=== PATIENT | female | born 1940 | race Caucasian/White ===

== ENCOUNTER 2021-06-28 16:39 | Emergency (ER) | payer MEDICARE ==
[~2021-06-28] VITALS: Ht 162.6 cm; Wt 57.2 kg
[2021-06-28 16:41] VITALS: BP_SYST 177
[2021-06-28] MEDS ORDERED: NACL 0.9% 1,000 ML IV ONE (17:00)
[2021-06-28] MEDS ORDERED: cloNIDine HCL 0.1 MG TABLET PO ONE (17:00)
[2021-06-28] MEDS ORDERED: MORPHINE 4 MG INJ. 4 MG/ML VIAL IVP ONE (17:00)
[2021-06-28] MEDS ORDERED: ONDANSETRON HCL 4 MG/2 ML VIAL IVP ONE (17:00)
[2021-06-28] MEDS ORDERED: ENALAPRILAT DIHYDRATE 1.25 MG/ML VIAL IVP ONE (17:00)
--- NOTE | 2021-06-28 17:00 | NUR ---
DR EAGLE IN TO ASSESS
--- NOTE | 2021-06-28 17:00 | NUR ---
Patient to ER bed 6 to gown for evaluation. Side rails up. Report given to Philip NICHOLE.
--- NOTE | 2021-06-28 17:31 | NUR ---
CALM, ALERT, RESP UNLABORED, SKIN WARM AND DRY. COMMUNICATES CLEARLY IN FULL COMPLETE SENTENCES. NO DISTRESS
[2021-06-28 17:39] LABS: BASOPHILS # (AUTO) 0.1 K/uL (0.0-0.2); BASOPHILS % (AUTO) 1.3 % (0.0-2.0); EOSINOPHILS # (AUTO) 0.1 K/uL (0.0-0.4); EOSINOPHILS % (AUTO) 2.1 % (0.0-4.0); HEMATOCRIT 36.1 % (36-48); HEMOGLOBIN 11.9 g/dL (12.0-16.0); LYMPHOCYTES # (AUTO) 1.3 K/uL (1.0-5.5); LYMPHOCYTES % (AUTO) 19.5 % (20.5-51.5); MEAN CORPUSCULAR HEMOGLOBIN 27 pg (27-31); MEAN CORPUSCULAR HGB CONC 33 % (32-36); MEAN CORPUSCULAR VOLUME 83 fL (79.0-98.0); MONOCYTES # (AUTO) 0.3 K/uL (0.0-1.0); MONOCYTES % (AUTO) 5.1 % (1.7-9.3); NEUTROPHILS # (AUTO) 4.8 K/uL (1.8-7.7); PLATELET COUNT (AUTO) 316 K/uL (130-430); RED BLOOD CELL COUNT(AUTO) 4.38 MIL/uL (4.2-6.2); RED CELL DISTRIBUTION WIDTH 17.3 % (9.0-15.0); WHITE BLOOD COUNT (AUTO) 6.7 K/uL (4.8-10.8)
[2021-06-28 17:45] LABS: ANION GAP 5 (5-15); CALCIUM 8.6 mg/dL (8.4-11.0); CHLORIDE 101 mmol/L (98-107); CREATININE 1.26 mg/dL (0.55-1.30); GLUCOSE 108 mg/dL (70-99); POTASSIUM 3.9 mmol/L (3.5-5.1); SODIUM SERUM 136 mmol/L (136-145); UREA NITROGEN, BLOOD 13 mg/dL (8-21)
[2021-06-28 17:51] LABS: ALANINE AMINOTRANSFERASE 14 U/L (12-78); ALBUMIN 2.9 g/dL (3.4-4.8); ASPARTATE AMINOTRANSFERASE 24 U/L (10-37); TOTAL BILIRUBIN 0.9 mg/dL (0.0-1.0)
--- NOTE | 2021-06-28 18:45 | NUR ---
UP TO [facility] STEADY, UA SENT ,PT CALM, ALERT, NO DISTRESS
--- NOTE | 2021-06-28 19:05 | NUR ---
Received endorsement from day shift, AAOX4, breathing spontaneously at room air, not in distress noted. With IV cannula g20 at left forearm on saline lock, patent noted. Vital sign stable, denies any pain
[2021-06-28 19:13] LABS: BILIRUBIN,URINE NEGATIVE (NEGATIVE); CLARITY/URINE CLEAR (CLEAR); COLOR,URINE YELLOW (YELLOW); GLUCOSE,URINE NEGATIVE (NEGATIVE); KETONES,URINE 1+ (NEGATIVE); LEUKOCYTE ESTERASE ,URINE NEGATIVE (NEGATIVE); NITRITE, URINE NEGATIVE (NEGATIVE); PROTEIN URINE TRACE (NEGATIVE); UROBILINOGEN,URINE 0.2 (0.2-1.0)
[2021-06-28 19:14] LABS: BLOOD, URINE TRACE (NEGATIVE)
[2021-06-28 19:16] LABS: BACTERIA,URINE FEW /HPF (None Seen); WBC,URINE 0-3 /HPF (0-3)
--- NOTE | 2021-06-28 20:40 | NUR ---
Patient transported to radiology via gurney in stable condition for CT Abdoman, accompanied by automotive brake technician.
--- NOTE | 2021-06-28 21:05 | NUR ---
Returned from radiology, back to room and kept comfortable
--- NOTE | 2021-06-28 22:45 | NUR ---
For transfer to [place] due to insurance request, shelter monitor still arranging for transfer
--- NOTE | 2021-06-29 00:40 | NUR ---
Complained of Abdominal pain 06/17, facial grimace noted, Dr. Saeed made aware
[2021-06-29] MEDS ORDERED: MORPHINE 4 MG INJ. 4 MG/ML VIAL IVP ONE (00:45)
--- NOTE | 2021-06-29 00:51 | NUR ---
Medication given as ordered, health teaching provided and verbalized understanding
[2021-06-29 02:29] VITALS: BP_SYST 143
--- NOTE | 2021-06-29 02:29 | NUR ---
Patient given written and verbal discharge instructions and verbalizes understanding. ER MD discussed with patient the results and treatment provided. Patient in stable condition. ID arm band removed. IV catheter removed intact and dressing applied, no active bleeding. NO Rx of given. Patient educated on pain management and to follow up with PMD. Pain Scale 0/10. Opportunity for questions provided and answered.
== END 2021-06-29 02:29 | disposition home or self-care (01) ==
LOC: SED 16:39
DX: A08.4 Viral intestinal infection, unspecified (principal); E86.0 Dehydration; I10 Essential (primary) hypertension; I48.91 Unspecified atrial fibrillation; Z88.8 Allergy status to other drugs, medicaments and biological substances; Z20.822 Contact with and (suspected) exposure to COVID-19
CPT/HCPCS: 36415; 71045; 74176; 76376; 80053; 81000; 83605; 85025; 87040; 87426; 93005; 96361; 96374; 96375; 96376; 99285; J2270 ×2; J2405; J7030

== ENCOUNTER 2022-12-31 23:47 | Inpatient (IN) | payer OTHER, MEDICAID ==
[~2022-12-31] VITALS: Ht 162.6 cm; Wt 64.2 kg
[2022-12-31 23:47] VITALS: BP_SYST 179
[~2022-12-31 23:47] MED LIST: ALBMDI INH; ALBU2.5V7 INH; ALEN70TA84 PO; ATEN-41 PO; DICL100G59 TP; DIGO125T PO; DIVA500T PO; HYDR25TA4 PO; LACT10SO6 PO; LIDOINT TP; LISI2.5T48 PO; MORP15TA60 PO; NITSL SL; ONDA-8 TL; OXYB15TA19 PO; POTA-178 PO; SYN50 PO
[2023-01-01] MEDS ORDERED: methylPREDNISolone SOD SUCC/PF 62.5 MG/ML VIAL IVP ONE
[2023-01-01] MEDS ORDERED: IPRATROPIUM/ALBUTEROL SULFATE 3 ML AMPUL.NEB (DUONEB) INH ONE
[2023-01-01 00:32] LABS: BASOPHILS # (AUTO) 0.1 K/uL (0.0-0.2); BASOPHILS % (AUTO) 1.3 % (0.0-2.0); EOSINOPHILS # (AUTO) 0.6 K/uL (0.0-0.4); MEAN CORPUSCULAR HEMOGLOBIN 26 pg (27-31); MONOCYTES # (AUTO) 1.2 K/uL (0.0-1.0); NEUTROPHILS # (AUTO) 4.5 K/uL (1.8-7.7); WHITE BLOOD COUNT (AUTO) 8.6 K/uL (4.8-10.8)
[2023-01-01 00:36] LABS: EOSINOPHILS % (AUTO) 6.6 % (0.0-4.0); HEMATOCRIT 34.5 % (36-48); HEMOGLOBIN 11.2 g/dL (12.0-16.0); LYMPHOCYTES # (AUTO) 2.2 K/uL (1.0-5.5); LYMPHOCYTES % (AUTO) 25.9 % (20.5-51.5); MEAN CORPUSCULAR HGB CONC 33 % (32-36); MEAN CORPUSCULAR VOLUME 80 fL (79.0-98.0); MONOCYTES % (AUTO) 14.1 % (1.7-9.3); NEUTROPHILS % (AUTO) 52.1 % (40.0-70.0); PLATELET COUNT (AUTO) 291 K/uL (130-430); RED BLOOD CELL COUNT(AUTO) 4.29 MIL/uL (4.2-6.2); RED CELL DISTRIBUTION WIDTH 16.7 % (9.0-15.0)
[2023-01-01] MEDS ORDERED: FUROSEMIDE 40 MG/4 ML VIAL IVP ONE (01:00)
[2023-01-01 01:19] LABS: ANION GAP 7 (5-15); CALCIUM 8.9 mg/dL (8.4-11.0); CHLORIDE 104 mmol/L (98-107); CREATININE 1.48 mg/dL (0.55-1.30); GLUCOSE 96 mg/dL (70-99); UREA NITROGEN, BLOOD 24 mg/dL (8-21)
[2023-01-01 01:26] LABS: ALANINE AMINOTRANSFERASE 14 U/L (12-78); ALBUMIN 3.1 g/dL (3.4-4.8); ASPARTATE AMINOTRANSFERASE 19 U/L (10-37); TOTAL BILIRUBIN 0.6 mg/dL (0.0-1.0)
[2023-01-01 06:50] VITALS: BP_SYST 137
[2023-01-01] MEDS ORDERED: DIVA-50 PO (07:14)
[2023-01-01] MEDS ORDERED: NITROGLYCERIN 0.4 MG TAB.SUBL SL PRN (07:15)
[2023-01-01] MEDS ORDERED: ONDANSETRON 4 MG ODT TAB TL PRN (07:15)
[2023-01-01] MEDS ORDERED: ALBUTEROL SULFATE 0.083% 2.5 MG/3 ML VIAL.NEB INH PRN (07:15)
[2023-01-01] MEDS ORDERED: MAGNESIUM SULFATE 50 ML IV PRN (08:00)
[2023-01-01] MEDS ORDERED: DOCUSATE SODIUM 100 MG CAPSULE PO PRN (08:00)
[2023-01-01] MEDS ORDERED: MUPIROCIN 2% TOPICAL OINTMENT 22 GM NS PRN (08:00)
[2023-01-01] MEDS ORDERED: ALBUTEROL MDI INHALATION 8 GM INH INH PRN (08:00)
[2023-01-01] MEDS ORDERED: POTASSIUM CHLORIDE 20 MEQ TAB.PRT.SR PO PRN (08:00)
[2023-01-01] MEDS ORDERED: ZOLPIDEM TARTRATE 5 MG TABLET PO PRN (08:00)
[2023-01-01] MEDS: LEVOTHYROXINE SODIUM 0.05 MG TABLET PO SCH (08:10)
[2023-01-01 08:47] VITALS: BP_SYST 143
[2023-01-01] MEDS ORDERED: OXYBUTYNIN CHLORIDE 15 MG PO SCH (09:00)
[2023-01-01] MEDS ORDERED: DIVALPROEX SODIUM 500 MG TABLET( DEPAKOTE) PO SCH (09:00)
[2023-01-01] MEDS: DIVALPROEX SODIUM 500 MG TABLET( DEPAKOTE) PO SCH ×2 (09:58→20:14)
[2023-01-01] MEDS: DIGOXIN 0.125 MG TABLET PO SCH (09:59)
[2023-01-01] MEDS: lisinopriL 5 MG TABLET PO SCH (10:00)
[2023-01-01] MEDS: ATENOLOL 25 MG TABLET(TENORMIN) PO SCH (10:01)
[2023-01-01] MEDS: HEPARIN SODIUM,PORCINE 5,000 UNITS/ML VIAL SUBCUT SCH ×2 (10:02→21:00)
[2023-01-01 10:42] VITALS: BP_SYST 143
[2023-01-01 12:00] VITALS: BP_SYST 138
[2023-01-01 16:00] VITALS: BP_SYST 133
[2023-01-01 20:00] VITALS: BP_SYST 131
[2023-01-01] MEDS: oxyBUTYnin chloride 5 MG TABLET PO SCH (20:14)
[2023-01-02] VITALS: BP_SYST 133
[2023-01-02] MEDS: IPRATROPIUM/ALBUTEROL SULFATE 3 ML AMPUL.NEB (DUONEB) INH PRN ×2 (03:19→13:46)
[2023-01-02 04:00] VITALS: BP_SYST 130
[2023-01-02] MEDS: LEVOTHYROXINE SODIUM 0.05 MG TABLET PO SCH (06:27)
[2023-01-02 07:21] LABS: BASOPHILS % (AUTO) 0.3 % (0.0-2.0); EOSINOPHILS % (AUTO) 0.1 % (0.0-4.0); HEMATOCRIT 31.1 % (36-48); HEMOGLOBIN 10.3 g/dL (12.0-16.0); LYMPHOCYTES # (AUTO) 1.7 K/uL (1.0-5.5); LYMPHOCYTES % (AUTO) 21.7 % (20.5-51.5); MEAN CORPUSCULAR HEMOGLOBIN 27 pg (27-31); MEAN CORPUSCULAR HGB CONC 33 % (32-36); MEAN CORPUSCULAR VOLUME 80 fL (79.0-98.0); MONOCYTES # (AUTO) 0.9 K/uL (0.0-1.0); MONOCYTES % (AUTO) 12.1 % (1.7-9.3); NEUTROPHILS # (AUTO) 5.2 K/uL (1.8-7.7); NEUTROPHILS % (AUTO) 65.8 % (40.0-70.0); PLATELET COUNT (AUTO) 272 K/uL (130-430); RED BLOOD CELL COUNT(AUTO) 3.87 MIL/uL (4.2-6.2); RED CELL DISTRIBUTION WIDTH 16.7 % (9.0-15.0); WHITE BLOOD COUNT (AUTO) 7.8 K/uL (4.8-10.8)
[2023-01-02 07:37] LABS: ANION GAP 6 (5-15); CALCIUM 8.2 mg/dL (8.4-11.0); CHLORIDE 103 mmol/L (98-107); CREATININE 1.44 mg/dL (0.55-1.30); GLUCOSE 98 mg/dL (70-99); UREA NITROGEN, BLOOD 34 mg/dL (8-21)
[2023-01-02 07:50] LABS: ALANINE AMINOTRANSFERASE 11 U/L (12-78); ALBUMIN 2.7 g/dL (3.4-4.8); ASPARTATE AMINOTRANSFERASE 13 U/L (10-37); CHOLESTEROL 122 mg/dL (<200); HDL CHOLESTEROL 52 mg/dL (>55); THYROID STIMULATING HORMONE 1.59 uIu/mL (0.34-4.82); TOTAL BILIRUBIN 0.4 mg/dL (0.0-1.0); TRIGLYCERIDES 30 mg/dL (30-150)
[2023-01-02 09:07] VITALS: BP_SYST 142
[2023-01-02] MEDS: FUROSEMIDE 40 MG/4 ML VIAL IVP SCH (09:14)
[2023-01-02] MEDS: DIGOXIN 0.125 MG TABLET PO SCH (09:14)
[2023-01-02] MEDS: oxyBUTYnin chloride 5 MG TABLET PO SCH ×2 (09:15→21:00)
[2023-01-02] MEDS: HYDROCHLOROTHIAZIDE 25 MG TABLET (HCTZ) PO SCH (09:15)
[2023-01-02] MEDS: DIVALPROEX SODIUM 500 MG TABLET( DEPAKOTE) PO SCH (09:16)
[2023-01-02] MEDS: lisinopriL 5 MG TABLET PO SCH (09:16)
[2023-01-02] MEDS: ATENOLOL 25 MG TABLET(TENORMIN) PO SCH (09:17)
[2023-01-02] MEDS: HEPARIN SODIUM,PORCINE 5,000 UNITS/ML VIAL SUBCUT SCH ×2 (09:28→21:00)
[2023-01-02 11:35] VITALS: BP_SYST 139
[2023-01-02 15:29] VITALS: BP_SYST 126
[2023-01-02] MEDS ORDERED: MORPHINE 2 MG/ML INJ. SYRINGE IVP ONE (18:45)
[2023-01-02 22:17] VITALS: BP_SYST 167
[2023-01-03 00:18] VITALS: BP_SYST 139
[2023-01-03] MEDS: IPRATROPIUM/ALBUTEROL SULFATE 3 ML AMPUL.NEB (DUONEB) INH PRN ×2 (02:17→22:10)
[2023-01-03 05:23] VITALS: BP_SYST 162
[2023-01-03 07:54] VITALS: BP_SYST 162
[2023-01-03] MEDS: LEVOTHYROXINE SODIUM 0.05 MG TABLET PO SCH (08:31)
[2023-01-03] MEDS: FUROSEMIDE 40 MG/4 ML VIAL IVP SCH (08:34)
[2023-01-03] MEDS: lisinopriL 5 MG TABLET PO SCH (08:36)
[2023-01-03] MEDS: HYDROCHLOROTHIAZIDE 25 MG TABLET (HCTZ) PO SCH (08:37)
[2023-01-03] MEDS: ATENOLOL 25 MG TABLET(TENORMIN) PO SCH (08:38)
[2023-01-03 08:40] LABS: ANION GAP 6 (5-15); CALCIUM 8.1 mg/dL (8.4-11.0); CHLORIDE 101 mmol/L (98-107); CREATININE 1.57 mg/dL (0.55-1.30); GLUCOSE 83 mg/dL (70-99); INR 1.2 (0.8-1.2); PROTHROMBIN TIME 12.1 SECS (9.5-12.5); UREA NITROGEN, BLOOD 36 mg/dL (8-21)
[2023-01-03] MEDS: DIGOXIN 0.125 MG TABLET PO SCH (08:40)
[2023-01-03] MEDS: oxyBUTYnin chloride 5 MG TABLET PO SCH ×3 (08:45→23:50)
[2023-01-03] MEDS: DIVALPROEX SODIUM 500 MG TABLET( DEPAKOTE) PO SCH (08:46)
[2023-01-03] MEDS: HEPARIN SODIUM,PORCINE 5,000 UNITS/ML VIAL SUBCUT SCH ×2 (08:47→21:00)
[2023-01-03 12:43] VITALS: BP_SYST 153
[2023-01-03] MEDS: MORPHINE 2 MG/ML INJ. SYRINGE IVP PRN (14:14)
[2023-01-03 16:00] VITALS: BP_SYST 150
[2023-01-03 21:50] VITALS: BP_SYST 135
[2023-01-04] VITALS (8 sets, daily range): BP systolic 122–146
[2023-01-04 06:55] LABS: ANION GAP 4 (5-15); CALCIUM 8.2 mg/dL (8.4-11.0); CHLORIDE 100 mmol/L (98-107); CREATININE 1.56 mg/dL (0.55-1.30); GLUCOSE 83 mg/dL (70-99); UREA NITROGEN, BLOOD 36 mg/dL (8-21)
[2023-01-04] MEDS: FUROSEMIDE 40 MG/4 ML VIAL IVP SCH (08:39)
[2023-01-04] MEDS: DIVALPROEX SODIUM 500 MG TABLET( DEPAKOTE) PO SCH (08:40)
[2023-01-04] MEDS: oxyBUTYnin chloride 5 MG TABLET PO SCH (08:40)
[2023-01-04] MEDS: lisinopriL 5 MG TABLET PO SCH (08:40)
[2023-01-04] MEDS: HYDROCHLOROTHIAZIDE 25 MG TABLET (HCTZ) PO SCH (08:41)
[2023-01-04] MEDS: DIGOXIN 0.125 MG TABLET PO SCH (08:41)
[2023-01-04] MEDS: ATENOLOL 25 MG TABLET(TENORMIN) PO SCH (08:42)
[2023-01-04] MEDS: LEVOTHYROXINE SODIUM 0.05 MG TABLET PO SCH (08:42)
[2023-01-04] MEDS: HEPARIN SODIUM,PORCINE 5,000 UNITS/ML VIAL SUBCUT SCH (08:43)
[2023-01-04] MEDS: MORPHINE 2 MG/ML INJ. SYRINGE IVP PRN (08:46)
[2023-01-04] MEDS: IPRATROPIUM/ALBUTEROL SULFATE 3 ML AMPUL.NEB (DUONEB) INH PRN (09:54)
[2023-01-04 15:41] LABS: APPEARANCE,SPUN,BODY FLUID CLEAR (CLEAR); BF APPEARANCE UNSPUN HAZY (CLEAR); BODY FLUID COLOR YELLOW (LT YELLOW); BODY FLUID TOTAL VOLUME 2000 mL; LYMPHOCYTES, BODY FLUID 88 %; NEUTROPHIL, BODY FLUID 12 %; RBC, BODY FLUID 1001 /uL; SOURCE/TYPE ,BODY FLUID THORACENTESIS; WBC, BODY FLUID 173 /uL
[2023-01-04 22:07] LABS: BODY FLUID GLUCOSE 92 mg/dL; BODY FLUID TOTAL PROTEIN 2.6 g/dL
== END 2023-01-04 22:00 | disposition home or self-care (01) | DRG 193 ==
LOC: SED 23:47 → STU 01-01 05:36
PROVIDERS: ADMIT General Practice; ATTEND General Practice
PROC: 0W993ZZ Drainage of Right Pleural Cavity, Percutaneous Approach (ICD-10-PCS; principal; 2023-01-04)
DX: J18.9 Pneumonia, unspecified organism (principal); I50.43 Acute on chronic combined systolic (congestive) and diastolic (congestive) heart failure; J96.01 Acute respiratory failure with hypoxia; N17.0 Acute kidney failure with tubular necrosis; J44.0 Chronic obstructive pulmonary disease with (acute) lower respiratory infection; I48.20 Chronic atrial fibrillation, unspecified; I11.0 Hypertensive heart disease with heart failure; G89.4 Chronic pain syndrome; M06.9 Rheumatoid arthritis, unspecified; E03.9 Hypothyroidism, unspecified; Z20.822 Contact with and (suspected) exposure to COVID-19; M81.0 Age-related osteoporosis without current pathological fracture; R53.81 Other malaise; G25.0 Essential tremor; N32.81 Overactive bladder; Z88.6 Allergy status to analgesic agent; Z88.1 Allergy status to other antibiotic agents; Z88.5 Allergy status to narcotic agent; Z88.0 Allergy status to penicillin; Z88.8 Allergy status to other drugs, medicaments and biological substances; Z79.899 Other long term (current) drug therapy; Z88.2 Allergy status to sulfonamides; Z90.710 Acquired absence of both cervix and uterus; Z90.49 Acquired absence of other specified parts of digestive tract; Z99.3 Dependence on wheelchair
CPT/HCPCS: 32555; 36415; 71045; 80048; 80053; 80061; 82947; 83037; 83735; 83880; 84157; 84443; 84484; 85025; 85610-TC; 85730-TC; 87070-TC; 87116; 88108; 89051-TC; 89060-TC; 93005; 94640; 94760; 96374; 97163-GP; 99285; G0378; J1644; J1940; J2270; J2930; Q0162

== ENCOUNTER 2023-01-17 23:41 | Inpatient (IN) | payer OTHER, MEDICAID ==
[~2023-01-17] VITALS: Ht 162.6 cm; Wt 60.8 kg
[~2023-01-17 23:41] MED LIST changes: +DIVA-50 PO; -DIVA500T PO
[2023-01-17 23:50] VITALS: BP_SYST 160
[2023-01-18] MEDS ORDERED: NACL 0.9% 1,000 ML IV ONE (00:15)
[2023-01-18] MEDS ORDERED: ONDANSETRON HCL 4 MG/2 ML VIAL IVP ONE ×2 (00:30→01:30)
[2023-01-18 00:44] LABS: BASOPHILS # (AUTO) 0.1 K/uL (0.0-0.2); BASOPHILS % (AUTO) 0.5 % (0.0-2.0); EOSINOPHILS # (AUTO) 0.2 K/uL (0.0-0.4); HEMATOCRIT 35.5 % (36-48); HEMOGLOBIN 11.6 g/dL (12.0-16.0); LYMPHOCYTES # (AUTO) 1.2 K/uL (1.0-5.5); LYMPHOCYTES % (AUTO) 10.4 % (20.5-51.5); MEAN CORPUSCULAR HEMOGLOBIN 26 pg (27-31); MEAN CORPUSCULAR HGB CONC 33 % (32-36); MEAN CORPUSCULAR VOLUME 81 fL (79.0-98.0); MONOCYTES # (AUTO) 1.6 K/uL (0.0-1.0); MONOCYTES % (AUTO) 14.1 % (1.7-9.3); NEUTROPHILS # (AUTO) 8.2 K/uL (1.8-7.7); PLATELET COUNT (AUTO) 330 K/uL (130-430); WHITE BLOOD COUNT (AUTO) 11.3 K/uL (4.8-10.8)
[2023-01-18 01:01] LABS: ANION GAP 13 (5-15); CALCIUM 8.5 mg/dL (8.4-11.0); CHLORIDE 104 mmol/L (98-107); CREATININE 1.64 mg/dL (0.55-1.30); GLUCOSE 101 mg/dL (70-99); UREA NITROGEN, BLOOD 33 mg/dL (8-21)
[2023-01-18 01:07] LABS: ALANINE AMINOTRANSFERASE 20 U/L (12-78); ASPARTATE AMINOTRANSFERASE 37 U/L (10-37); LIPASE 77 U/L (73-393); TOTAL BILIRUBIN 0.4 mg/dL (0.0-1.0)
[2023-01-18] MEDS ORDERED: MORPHINE 4 MG INJ. 4 MG/ML VIAL IVP ONE (01:30)
[2023-01-18] MEDS ORDERED: KCL 20 mEq in 100 mL (PREMIX) 100 ML IV ONE (01:45)
[2023-01-18 02:18] LABS: PHOSPHORUS 4.2 mg/dL (2.7-4.5)
[2023-01-18] MEDS ORDERED: MORPHINE 2 MG/ML INJ. SYRINGE IVP PRN (05:00)
[2023-01-18 06:00] VITALS: BP_SYST 151
[2023-01-18 06:24] VITALS: BP_SYST 151
[2023-01-18] MEDS: ONDANSETRON HCL 4 MG/2 ML VIAL IVP PRN (06:57)
[2023-01-18] MEDS: D5/0.45 NS 1,000 ML IV SCH ×2 (07:05→10:20)
[2023-01-18 08:00] VITALS: BP_SYST 145
[2023-01-18] MEDS ORDERED: DIPHENHYDRAMINE HCL 25 MG CAPSULE PO ONE (08:15)
[2023-01-18] MEDS ORDERED: DIPHENHYDRAMINE INJ 50 MG/ML VIAL IM PRN (08:15)
[2023-01-18] MEDS ORDERED: DIATR MEGLU/DIATRIZ SOD 30 ML SOLUTION PO ONE ×2 (08:22→12:27)
[2023-01-18] MEDS: predniSONE 20 MG TABLET PO SCH (10:19)
[2023-01-18] MEDS ORDERED: NALOXONE HCL 0.4 MG/ML AMP (NARCAN) IVP PRN (10:30)
[2023-01-18] MEDS ORDERED: ONDANSETRON HCL 4 MG/2 ML VIAL IVP PRN (10:30)
[2023-01-18] MEDS: ALBUTEROL SULFATE 0.083% 2.5 MG/3 ML VIAL.NEB INH SCH ×4 (11:11→23:05)
[2023-01-18 11:24] VITALS: BP_SYST 152
[2023-01-18 11:31] LABS: ANION GAP 12 (5-15); CALCIUM 8.5 mg/dL (8.4-11.0); CHLORIDE 107 mmol/L (98-107); CREATININE 1.54 mg/dL (0.55-1.30); GLUCOSE 95 mg/dL (70-99); UREA NITROGEN, BLOOD 33 mg/dL (8-21)
[2023-01-18] MEDS ORDERED: LIDOCAINE TOPICAL OINT 5%, 35 GM TP ONE (12:00)
[2023-01-18 15:13] VITALS: BP_SYST 122
[2023-01-18] MEDS: KCL 20 mEq in 100 mL (PREMIX) 100 ML IV SCH ×2 (17:18→20:31)
[2023-01-18 20:00] VITALS: BP_SYST 111
[2023-01-19] VITALS: BP_SYST 106
[2023-01-19] MEDS: ALBUTEROL SULFATE 0.083% 2.5 MG/3 ML VIAL.NEB INH SCH ×6 (04:11→22:45)
[2023-01-19 06:05] LABS: BASOPHILS % (AUTO) 0.3 % (0.0-2.0); HEMATOCRIT 30.9 % (36-48); HEMOGLOBIN 10.3 g/dL (12.0-16.0); LYMPHOCYTES # (AUTO) 1.1 K/uL (1.0-5.5); LYMPHOCYTES % (AUTO) 14.2 % (20.5-51.5); MEAN CORPUSCULAR HEMOGLOBIN 27 pg (27-31); MEAN CORPUSCULAR HGB CONC 33 % (32-36); MEAN CORPUSCULAR VOLUME 80 fL (79.0-98.0); MONOCYTES # (AUTO) 0.6 K/uL (0.0-1.0); NEUTROPHILS % (AUTO) 77.5 % (40.0-70.0); PLATELET COUNT (AUTO) 289 K/uL (130-430); RED BLOOD CELL COUNT(AUTO) 3.89 MIL/uL (4.2-6.2); RED CELL DISTRIBUTION WIDTH 16.9 % (9.0-15.0); WHITE BLOOD COUNT (AUTO) 7.7 K/uL (4.8-10.8)
[2023-01-19 06:19] LABS: INR 1.2 (0.8-1.2); PROTHROMBIN TIME 11.7 SECS (9.5-12.5)
[2023-01-19] MEDS: D5/0.45 NS 1,000 ML IV SCH ×3 (06:23→19:40)
[2023-01-19 06:42] LABS: ALANINE AMINOTRANSFERASE 9 U/L (12-78); ALBUMIN 2.3 g/dL (3.4-4.8); ANION GAP 12 (5-15); ASPARTATE AMINOTRANSFERASE 22 U/L (10-37); CALCIUM 7.9 mg/dL (8.4-11.0); CHLORIDE 110 mmol/L (98-107); CREATININE 1.48 mg/dL (0.55-1.30); GLUCOSE 123 mg/dL (70-99); TOTAL BILIRUBIN 0.3 mg/dL (0.0-1.0); UREA NITROGEN, BLOOD 31 mg/dL (8-21)
[2023-01-19 08:28] VITALS: BP_SYST 112
[2023-01-19] MEDS: LIDOCAINE TOPICAL OINT 5%, 35 GM TP SCH (09:00)
[2023-01-19] MEDS: predniSONE 20 MG TABLET PO SCH (09:00)
[2023-01-19 11:24] VITALS: BP_SYST 112
[2023-01-19] MEDS: ONDANSETRON HCL 4 MG/2 ML VIAL IVP PRN ×2 (13:20→19:33)
[2023-01-19 15:14] VITALS: BP_SYST 116
[2023-01-19] MEDS ORDERED: GOLYTELY / COLYTE SOLUTION 4 LITERS PO ONE (18:00)
[2023-01-19] MEDS: MORPHINE 4 MG INJ. 4 MG/ML VIAL IVP PRN (19:33)
[2023-01-19 20:00] VITALS: BP_SYST 132
[2023-01-20 01:38] VITALS: BP_SYST 123
[2023-01-20] MEDS: ALBUTEROL SULFATE 0.083% 2.5 MG/3 ML VIAL.NEB INH SCH ×6 (03:54→23:29)
[2023-01-20] MEDS: D5/0.45 NS 1,000 ML IV SCH ×2 (07:02→13:36)
[2023-01-20 07:12] LABS: BASOPHILS # (AUTO) 0.1 K/uL (0.0-0.2); BASOPHILS % (AUTO) 0.8 % (0.0-2.0); EOSINOPHILS # (AUTO) 0.3 K/uL (0.0-0.4); EOSINOPHILS % (AUTO) 3.8 % (0.0-4.0); HEMATOCRIT 31.1 % (36-48); HEMOGLOBIN 10.3 g/dL (12.0-16.0); LYMPHOCYTES # (AUTO) 2.2 K/uL (1.0-5.5); LYMPHOCYTES % (AUTO) 31.2 % (20.5-51.5); MEAN CORPUSCULAR HEMOGLOBIN 27 pg (27-31); MEAN CORPUSCULAR HGB CONC 33 % (32-36); MEAN CORPUSCULAR VOLUME 80 fL (79.0-98.0); MONOCYTES # (AUTO) 1.2 K/uL (0.0-1.0); MONOCYTES % (AUTO) 16.3 % (1.7-9.3); NEUTROPHILS # (AUTO) 3.4 K/uL (1.8-7.7); NEUTROPHILS % (AUTO) 47.9 % (40.0-70.0); PLATELET COUNT (AUTO) 307 K/uL (130-430); RED BLOOD CELL COUNT(AUTO) 3.88 MIL/uL (4.2-6.2); RED CELL DISTRIBUTION WIDTH 16.7 % (9.0-15.0); WHITE BLOOD COUNT (AUTO) 7.1 K/uL (4.8-10.8)
[2023-01-20 07:39] LABS: INR 1.2 (0.8-1.2); PROTHROMBIN TIME 12.4 SECS (9.5-12.5)
[2023-01-20 08:03] LABS: ALANINE AMINOTRANSFERASE 21 U/L (12-78); ALBUMIN 2.4 g/dL (3.4-4.8); ANION GAP 12 (5-15); ASPARTATE AMINOTRANSFERASE 27 U/L (10-37); CALCIUM 7.6 mg/dL (8.4-11.0); CHLORIDE 105 mmol/L (98-107); CREATININE 1.18 mg/dL (0.55-1.30); GLUCOSE 84 mg/dL (70-99); TOTAL BILIRUBIN 0.5 mg/dL (0.0-1.0); UREA NITROGEN, BLOOD 22 mg/dL (8-21)
[2023-01-20 08:35] VITALS: BP_SYST 120
[2023-01-20] MEDS: LIDOCAINE TOPICAL OINT 5%, 35 GM TP SCH (09:00)
[2023-01-20] MEDS: predniSONE 20 MG TABLET PO SCH (09:00)
[2023-01-20] MEDS ORDERED: DIPHENHYDRAMINE INJ 50 MG/ML VIAL ONE (09:37)
[2023-01-20] MEDS ORDERED: MEPERIDINE 50 MG/ML VIAL ONE ×2 (09:38→10:06)
[2023-01-20] MEDS ORDERED: KCL 40 mEq in 100 mL (PREMIX) 100 ML IV ONE (10:15)
[2023-01-20] MEDS ORDERED: K PHOS 15 MM in NS 250 ML IV ONE ×2 (11:00→18:00)
[2023-01-20 11:46] VITALS: BP_SYST 128
[2023-01-20] MEDS ORDERED: POTASSIUM CHLORIDE 40 MEQ in NS 250 ML IV ONE (15:00)
[2023-01-20 16:27] VITALS: BP_SYST 128
[2023-01-20 20:00] VITALS: BP_SYST 124
[2023-01-21] VITALS: BP_SYST 140
[2023-01-21] MEDS: ALBUTEROL SULFATE 0.083% 2.5 MG/3 ML VIAL.NEB INH SCH ×6 (03:00→23:49)
[2023-01-21 06:28] LABS: BASOPHILS # (AUTO) 0.1 K/uL (0.0-0.2); EOSINOPHILS # (AUTO) 0.5 K/uL (0.0-0.4); EOSINOPHILS % (AUTO) 7.2 % (0.0-4.0); HEMATOCRIT 29.9 % (36-48); LYMPHOCYTES # (AUTO) 1.8 K/uL (1.0-5.5); LYMPHOCYTES % (AUTO) 25.7 % (20.5-51.5); MEAN CORPUSCULAR HEMOGLOBIN 27 pg (27-31); MEAN CORPUSCULAR HGB CONC 33 % (32-36); MEAN CORPUSCULAR VOLUME 80 fL (79.0-98.0); MONOCYTES # (AUTO) 1.2 K/uL (0.0-1.0); MONOCYTES % (AUTO) 16.8 % (1.7-9.3); NEUTROPHILS # (AUTO) 3.5 K/uL (1.8-7.7); NEUTROPHILS % (AUTO) 49.3 % (40.0-70.0); PLATELET COUNT (AUTO) 304 K/uL (130-430); RED BLOOD CELL COUNT(AUTO) 3.76 MIL/uL (4.2-6.2); WHITE BLOOD COUNT (AUTO) 7.1 K/uL (4.8-10.8)
[2023-01-21 06:59] LABS: ALANINE AMINOTRANSFERASE 22 U/L (12-78); ALBUMIN 2.3 g/dL (3.4-4.8); ANION GAP 11 (5-15); ASPARTATE AMINOTRANSFERASE 27 U/L (10-37); CALCIUM 7.7 mg/dL (8.4-11.0); CHLORIDE 107 mmol/L (98-107); CREATININE 1.02 mg/dL (0.55-1.30); GLUCOSE 87 mg/dL (70-99); TOTAL BILIRUBIN 0.5 mg/dL (0.0-1.0); UREA NITROGEN, BLOOD 13 mg/dL (8-21)
[2023-01-21] MEDS: D5/0.45 NS 1,000 ML IV SCH (08:00)
[2023-01-21 08:15] VITALS: BP_SYST 134
[2023-01-21 08:23] VITALS: BP_SYST 140
[2023-01-21] MEDS: LIDOCAINE TOPICAL OINT 5%, 35 GM TP SCH (09:00)
[2023-01-21] MEDS ORDERED: POTASSIUM CHLORIDE 20 MEQ TAB.PRT.SR PO ONE (10:00)
[2023-01-21] MEDS ORDERED: POLY17PO4 PO (10:14)
[2023-01-21 12:00] VITALS: BP_SYST 126
[2023-01-21 16:00] VITALS: BP_SYST 126
[2023-01-21 22:06] VITALS: BP_SYST 147
[2023-01-22 01:58] VITALS: BP_SYST 129
[2023-01-22 02:26] VITALS: BP_SYST 186
[2023-01-22] MEDS: ALBUTEROL SULFATE 0.083% 2.5 MG/3 ML VIAL.NEB INH SCH ×7 (03:35→23:00)
[2023-01-22] MEDS: D5/0.45 NS 1,000 ML IV SCH (05:15)
[2023-01-22 05:16] VITALS: BP_SYST 136
[2023-01-22 05:38] LABS: BASOPHILS # (AUTO) 0.1 K/uL (0.0-0.2); BASOPHILS % (AUTO) 0.7 % (0.0-2.0); EOSINOPHILS # (AUTO) 0.2 K/uL (0.0-0.4); EOSINOPHILS % (AUTO) 2.1 % (0.0-4.0); HEMATOCRIT 36.4 % (36-48); LYMPHOCYTES # (AUTO) 1.3 K/uL (1.0-5.5); LYMPHOCYTES % (AUTO) 13.9 % (20.5-51.5); MEAN CORPUSCULAR HEMOGLOBIN 26 pg (27-31); MEAN CORPUSCULAR HGB CONC 33 % (32-36); MEAN CORPUSCULAR VOLUME 79 fL (79.0-98.0); MONOCYTES # (AUTO) 1.2 K/uL (0.0-1.0); MONOCYTES % (AUTO) 12.8 % (1.7-9.3); NEUTROPHILS # (AUTO) 6.8 K/uL (1.8-7.7); NEUTROPHILS % (AUTO) 70.5 % (40.0-70.0); PLATELET COUNT (AUTO) 405 K/uL (130-430); WHITE BLOOD COUNT (AUTO) 9.7 K/uL (4.8-10.8)
[2023-01-22 06:04] LABS: ALANINE AMINOTRANSFERASE 21 U/L (12-78); ALBUMIN 2.6 g/dL (3.4-4.8); ANION GAP 13 (5-15); ASPARTATE AMINOTRANSFERASE 25 U/L (10-37); CALCIUM 8.4 mg/dL (8.4-11.0); CHLORIDE 105 mmol/L (98-107); CREATININE 0.82 mg/dL (0.55-1.30); GLUCOSE 96 mg/dL (70-99); TOTAL BILIRUBIN 1.1 mg/dL (0.0-1.0); UREA NITROGEN, BLOOD 7 mg/dL (8-21)
[2023-01-22] MEDS ORDERED: POTASSIUM CHLORIDE 20 MEQ TAB.PRT.SR PO ONE (07:30)
[2023-01-22] MEDS: LIDOCAINE TOPICAL OINT 5%, 35 GM TP SCH (08:57)
[2023-01-22] MEDS ORDERED: KCL 20 mEq in 100 mL (PREMIX) 100 ML IV ONE (09:30)
[2023-01-22] MEDS: lisinopriL 5 MG TABLET PO SCH (10:40)
[2023-01-22] MEDS: ATENOLOL 25 MG TABLET(TENORMIN) PO SCH (10:41)
[2023-01-22] MEDS ORDERED: POTASSIUM CHLORIDE 40 MEQ in NS 250 ML IV ONE (11:00)
[2023-01-22] MEDS: MORPHINE 2 MG/ML INJ. SYRINGE IVP PRN (11:31)
[2023-01-22 13:18] VITALS: BP_SYST 188
[2023-01-22] MEDS ORDERED: POTASSIUM CHLORIDE 20 MEQ/PKT PACKET PO ONE (15:00)
[2023-01-22] MEDS ORDERED: cloNIDine HCL 0.1 MG TABLET PO ONE (16:30)
[2023-01-22] MEDS ORDERED: DIGOXIN 0.125 MG TABLET PO ONE (16:30)
[2023-01-22 17:11] VITALS: BP_SYST 165
[2023-01-22 20:00] VITALS: BP_SYST 158
[2023-01-23] VITALS: BP_SYST 142
[2023-01-23] MEDS: ALBUTEROL SULFATE 0.083% 2.5 MG/3 ML VIAL.NEB INH SCH ×6 (03:00→23:32)
[2023-01-23 07:32] LABS: ANION GAP 11 (5-15); CALCIUM 8.2 mg/dL (8.4-11.0); CHLORIDE 96 mmol/L (98-107); CREATININE 0.84 mg/dL (0.55-1.30); GLUCOSE 118 mg/dL (70-99); UREA NITROGEN, BLOOD 8 mg/dL (8-21)
[2023-01-23 08:30] VITALS: BP_SYST 154
[2023-01-23] MEDS ORDERED: ALBUTEROL SULFATE 0.083% 2.5 MG/3 ML VIAL.NEB INH PRN (09:30)
[2023-01-23] MEDS ORDERED: DIGOXIN 0.125 MG TABLET PO ONE (09:30)
[2023-01-23] MEDS ORDERED: DIVALPROEX SODIUM 500 MG TABLET( DEPAKOTE) PO ONE (09:30)
[2023-01-23] MEDS ORDERED: oxyBUTYnin chloride 5 MG TABLET PO ONE (09:30)
[2023-01-23] MEDS ORDERED: ATENOLOL 25 MG TABLET(TENORMIN) PO ONE (09:30)
[2023-01-23] MEDS ORDERED: MORPHINE SULFATE 15 MG TABLET.ER PO PRN (09:30)
[2023-01-23] MEDS ORDERED: POTASSIUM CHLORIDE 20 MEQ TAB.PRT.SR PO ONE (09:30)
[2023-01-23] MEDS ORDERED: D5NS 1,000 ML IV SCH (09:30)
[2023-01-23] MEDS ORDERED: lisinopriL 5 MG TABLET PO ONE (09:30)
[2023-01-23] MEDS ORDERED: LEVOTHYROXINE SODIUM 0.05 MG TABLET PO ONE (09:30)
[2023-01-23] MEDS ORDERED: ALBUTEROL MDI INHALATION 8 GM INH INH PRN (09:30)
[2023-01-23] MEDS ORDERED: ONDANSETRON 4 MG ODT TAB TL PRN (09:30)
[2023-01-23] MEDS ORDERED: POLYETHYLENE GLYCOL 3350, 17 GM/ POWD.PACK PO ONE (09:30)
[2023-01-23] MEDS ORDERED: HYDROCHLOROTHIAZIDE 25 MG TABLET (HCTZ) PO SCH (09:30)
[2023-01-23] MEDS ORDERED: LACTULOSE 20 GM/30 ML UDC PO PRN (09:30)
[2023-01-23] MEDS ORDERED: NITROGLYCERIN 0.4 MG TAB.SUBL SL PRN (09:30)
[2023-01-23] MEDS: LIDOCAINE TOPICAL OINT 5%, 35 GM TP SCH (10:24)
[2023-01-23] MEDS: lisinopriL 5 MG TABLET PO SCH (10:28)
[2023-01-23] MEDS: ATENOLOL 25 MG TABLET(TENORMIN) PO SCH (10:30)
[2023-01-23 16:40] VITALS: BP_SYST 150
[2023-01-23 19:50] VITALS: BP_SYST 126
[2023-01-23] MEDS: POLYETHYLENE GLYCOL 3350, 17 GM/ POWD.PACK PO SCH (21:26)
[2023-01-23] MEDS: oxyBUTYnin chloride 5 MG TABLET PO SCH (21:26)
[2023-01-23] MEDS: DIVALPROEX SODIUM 500 MG TABLET( DEPAKOTE) PO SCH (21:27)
[2023-01-23] MEDS: MORPHINE 2 MG/ML INJ. SYRINGE IVP PRN (22:38)
[2023-01-24 00:02] VITALS: BP_SYST 117
[2023-01-24] MEDS: ALBUTEROL SULFATE 0.083% 2.5 MG/3 ML VIAL.NEB INH SCH ×6 (03:00→23:14)
[2023-01-24] MEDS: LEVOTHYROXINE SODIUM 0.05 MG TABLET PO SCH (06:06)
[2023-01-24] MEDS: ONDANSETRON HCL 4 MG/2 ML VIAL IVP PRN ×3 (06:15→20:51)
[2023-01-24] MEDS: MORPHINE 2 MG/ML INJ. SYRINGE IVP PRN (06:16)
[2023-01-24 07:41] LABS: BASOPHILS # (AUTO) 0.1 K/uL (0.0-0.2); EOSINOPHILS # (AUTO) 0.5 K/uL (0.0-0.4); EOSINOPHILS % (AUTO) 4.4 % (0.0-4.0); HEMATOCRIT 35.1 % (36-48); HEMOGLOBIN 11.8 g/dL (12.0-16.0); LYMPHOCYTES # (AUTO) 2.7 K/uL (1.0-5.5); LYMPHOCYTES % (AUTO) 24.9 % (20.5-51.5); MEAN CORPUSCULAR HEMOGLOBIN 27 pg (27-31); MEAN CORPUSCULAR HGB CONC 34 % (32-36); MEAN CORPUSCULAR VOLUME 80 fL (79.0-98.0); MONOCYTES # (AUTO) 1.7 K/uL (0.0-1.0); NEUTROPHILS # (AUTO) 5.8 K/uL (1.8-7.7); NEUTROPHILS % (AUTO) 53.7 % (40.0-70.0); PLATELET COUNT (AUTO) 451 K/uL (130-430); WHITE BLOOD COUNT (AUTO) 10.7 K/uL (4.8-10.8)
[2023-01-24 08:00] VITALS: BP_SYST 141
[2023-01-24 08:05] LABS: ALANINE AMINOTRANSFERASE 20 U/L (12-78); ALBUMIN 2.5 g/dL (3.4-4.8); ANION GAP 9 (5-15); ASPARTATE AMINOTRANSFERASE 19 U/L (10-37); CALCIUM 7.9 mg/dL (8.4-11.0); CHLORIDE 103 mmol/L (98-107); CREATININE 1.36 mg/dL (0.55-1.30); GLUCOSE 100 mg/dL (70-99); TOTAL BILIRUBIN 0.5 mg/dL (0.0-1.0); UREA NITROGEN, BLOOD 18 mg/dL (8-21)
[2023-01-24 08:17] VITALS: BP_SYST 117
[2023-01-24] MEDS ORDERED: lisinopriL 5 MG TABLET PO SCH (09:00)
[2023-01-24] MEDS ORDERED: ATENOLOL 25 MG TABLET(TENORMIN) PO SCH (09:00)
[2023-01-24] MEDS ORDERED: ALENDRONATE SODIUM 70 MG TABLET (FOSAMAX) PO SCH (09:00)
[2023-01-24] MEDS: POLYETHYLENE GLYCOL 3350, 17 GM/ POWD.PACK PO SCH ×2 (09:17→20:42)
[2023-01-24] MEDS: ATENOLOL 25 MG TABLET(TENORMIN) PO SCH (09:17)
[2023-01-24] MEDS: oxyBUTYnin chloride 5 MG TABLET PO SCH ×2 (09:17→20:42)
[2023-01-24] MEDS: POTASSIUM CHLORIDE 10 MEQ TAB.PRT.SR PO SCH (09:17)
[2023-01-24] MEDS: lisinopriL 5 MG TABLET PO SCH (09:18)
[2023-01-24] MEDS: DIVALPROEX SODIUM 500 MG TABLET( DEPAKOTE) PO SCH ×2 (09:19→20:42)
[2023-01-24] MEDS: DIGOXIN 0.125 MG TABLET PO SCH (09:19)
[2023-01-24 11:12] VITALS: BP_SYST 103
[2023-01-24] MEDS: MORPHINE 4 MG INJ. 4 MG/ML VIAL IVP PRN ×3 (11:45→20:43)
[2023-01-24] MEDS: LIDOCAINE TOPICAL OINT 5%, 35 GM TP SCH (11:47)
[2023-01-24 16:13] VITALS: BP_SYST 109
[2023-01-24 20:00] VITALS: BP_SYST 100
[2023-01-25] MEDS: ALBUTEROL SULFATE 0.083% 2.5 MG/3 ML VIAL.NEB INH SCH ×4 (03:14→15:02)
[2023-01-25 03:30] VITALS: BP_SYST 104
[2023-01-25 06:47] LABS: EOSINOPHILS # (AUTO) 0.7 K/uL (0.0-0.4); EOSINOPHILS % (AUTO) 7.4 % (0.0-4.0); HEMATOCRIT 30.7 % (36-48); LYMPHOCYTES # (AUTO) 2.9 K/uL (1.0-5.5); LYMPHOCYTES % (AUTO) 28.4 % (20.5-51.5); MEAN CORPUSCULAR HEMOGLOBIN 26 pg (27-31); MEAN CORPUSCULAR HGB CONC 33 % (32-36); MEAN CORPUSCULAR VOLUME 80 fL (79.0-98.0); MONOCYTES # (AUTO) 1.6 K/uL (0.0-1.0); MONOCYTES % (AUTO) 16.3 % (1.7-9.3); PLATELET COUNT (AUTO) 405 K/uL (130-430); RED BLOOD CELL COUNT(AUTO) 3.82 MIL/uL (4.2-6.2); RED CELL DISTRIBUTION WIDTH 16.9 % (9.0-15.0); WHITE BLOOD COUNT (AUTO) 10.1 K/uL (4.8-10.8)
[2023-01-25] MEDS: LEVOTHYROXINE SODIUM 0.05 MG TABLET PO SCH (07:02)
[2023-01-25 07:24] LABS: ALANINE AMINOTRANSFERASE 16 U/L (12-78); ALBUMIN 2.4 g/dL (3.4-4.8); ANION GAP 8 (5-15); ASPARTATE AMINOTRANSFERASE 16 U/L (10-37); CALCIUM 7.7 mg/dL (8.4-11.0); CHLORIDE 104 mmol/L (98-107); CREATININE 1.66 mg/dL (0.55-1.30); GLUCOSE 85 mg/dL (70-99); PHOSPHORUS 4.2 mg/dL (2.7-4.5); TOTAL BILIRUBIN 0.4 mg/dL (0.0-1.0); UREA NITROGEN, BLOOD 21 mg/dL (8-21)
[2023-01-25 08:03] LABS: BASOPHILS % (AUTO) 0.3 % (0.0-2.0); NEUTROPHILS # (AUTO) 4.8 K/uL (1.8-7.7); NEUTROPHILS % (AUTO) 47.6 % (40.0-70.0)
[2023-01-25] MEDS: LIDOCAINE TOPICAL OINT 5%, 35 GM TP SCH (09:00)
[2023-01-25] MEDS: POLYETHYLENE GLYCOL 3350, 17 GM/ POWD.PACK PO SCH (09:00)
[2023-01-25] MEDS: ATENOLOL 25 MG TABLET(TENORMIN) PO SCH (09:00)
[2023-01-25] MEDS: lisinopriL 5 MG TABLET PO SCH (09:00)
[2023-01-25] MEDS: POTASSIUM CHLORIDE 10 MEQ TAB.PRT.SR PO SCH (09:15)
[2023-01-25] MEDS: DIVALPROEX SODIUM 500 MG TABLET( DEPAKOTE) PO SCH (09:16)
[2023-01-25] MEDS: oxyBUTYnin chloride 5 MG TABLET PO SCH (09:16)
[2023-01-25] MEDS: DIGOXIN 0.125 MG TABLET PO SCH (09:17)
[2023-01-25 11:26] VITALS: BP_SYST 105
[2023-01-25 16:45] VITALS: BP_SYST 110
[2023-01-25 16:48] VITALS: BP_SYST 110
[2023-01-26] MEDS ORDERED: IBUP-1969 PO (22:04)
[2023-01-26] MEDS ORDERED: TRAM50TA2 PO (22:05)
== END 2023-01-25 20:00 | disposition home or self-care (01) | DRG 388 ==
LOC: SED 23:41 → SMU 01-18 04:47
PROVIDERS: ADMIT Preventive Medicine Preventive Medicine/Occupational Environmental Medicine; ATTEND Preventive Medicine Preventive Medicine/Occupational Environmental Medicine
PROC: 0DB58ZX Excision of Esophagus, Via Natural or Artificial Opening Endoscopic, Diagnostic (ICD-10-PCS; 2023-01-20)
PROC: 0DJD8ZZ Inspection of Lower Intestinal Tract, Via Natural or Artificial Opening Endoscopic (ICD-10-PCS; 2023-01-20)
PROC: 0DB98ZX Excision of Duodenum, Via Natural or Artificial Opening Endoscopic, Diagnostic (ICD-10-PCS; principal; 2023-01-20 07:30)
PROC: 0DB78ZX Excision of Stomach, Pylorus, Via Natural or Artificial Opening Endoscopic, Diagnostic (ICD-10-PCS; 2023-01-20 07:30)
DX: K56.7 Ileus, unspecified (principal); N17.0 Acute kidney failure with tubular necrosis; E87.1 Hypo-osmolality and hyponatremia; I13.0 Hypertensive heart and chronic kidney disease with heart failure and stage 1 through stage 4 chronic kidney disease, or unspecified chronic kidney disease; R65.10 Systemic inflammatory response syndrome (SIRS) of non-infectious origin without acute organ dysfunction; E44.0 Moderate protein-calorie malnutrition; K44.9 Diaphragmatic hernia without obstruction or gangrene; K29.70 Gastritis, unspecified, without bleeding; K40.90 Unilateral inguinal hernia, without obstruction or gangrene, not specified as recurrent; K21.00 Gastro-esophageal reflux disease with esophagitis, without bleeding; K64.8 Other hemorrhoids; E87.6 Hypokalemia; E83.52 Hypercalcemia; E03.9 Hypothyroidism, unspecified; G89.4 Chronic pain syndrome; I25.10 Atherosclerotic heart disease of native coronary artery without angina pectoris; I48.91 Unspecified atrial fibrillation; E88.09 Other disorders of plasma-protein metabolism, not elsewhere classified; M81.0 Age-related osteoporosis without current pathological fracture; Z20.822 Contact with and (suspected) exposure to COVID-19; J44.9 Chronic obstructive pulmonary disease, unspecified; D64.9 Anemia, unspecified; D75.839 Thrombocytosis, unspecified; E83.51 Hypocalcemia; E83.39 Other disorders of phosphorus metabolism; D72.829 Elevated white blood cell count, unspecified; M06.9 Rheumatoid arthritis, unspecified; R53.81 Other malaise; I50.9 Heart failure, unspecified; N18.9 Chronic kidney disease, unspecified; Z90.710 Acquired absence of both cervix and uterus; Z90.49 Acquired absence of other specified parts of digestive tract; Z68.23 Body mass index [BMI] 23.0-23.9, adult
CPT/HCPCS: 36415; 43239; 71045; 74018; 76376; 80048; 80053; 83605; 83690; 83735; 84100; 84484; 85025; 85610-TC; 85730-TC; 86886; 86900; 86901; 87040; 87081; 88305; 88312; 88313; 93005; 94640; 94760; 97163-GP; 97530-GP; 99291; J1200; J2175; J2270; J2405; J3480; J7050; J7512; J7613; Q0162; Q0163; Q9964

== ENCOUNTER 2023-01-26 18:58 | Emergency (ER) | payer OTHER, MEDICAID ==
[~2023-01-26] VITALS: Ht 160 cm; Wt 49.9 kg
[~2023-01-26 18:58] MED LIST changes: +POLY17PO4 PO
[2023-01-26 19:39] VITALS: BP_SYST 175
--- NOTE | 2023-01-26 20:30 | NUR ---
Hospice Admitting Clerk at bedside.
[2023-01-26 20:37] LABS: BASOPHILS # (AUTO) 0.1 K/uL (0.0-0.2); BASOPHILS % (AUTO) 0.7 % (0.0-2.0); EOSINOPHILS # (AUTO) 0.3 K/uL (0.0-0.4); EOSINOPHILS % (AUTO) 3.3 % (0.0-4.0); HEMATOCRIT 35.5 % (36-48); HEMOGLOBIN 11.5 g/dL (12.0-16.0); LYMPHOCYTES # (AUTO) 2.1 K/uL (1.0-5.5); LYMPHOCYTES % (AUTO) 24.4 % (20.5-51.5); MEAN CORPUSCULAR HEMOGLOBIN 26 pg (27-31); MEAN CORPUSCULAR HGB CONC 33 % (32-36); MEAN CORPUSCULAR VOLUME 81 fL (79.0-98.0); MONOCYTES # (AUTO) 1.4 K/uL (0.0-1.0); MONOCYTES % (AUTO) 16.5 % (1.7-9.3); NEUTROPHILS # (AUTO) 4.8 K/uL (1.8-7.7); NEUTROPHILS % (AUTO) 55.1 % (40.0-70.0); PLATELET COUNT (AUTO) 400 K/uL (130-430); RED CELL DISTRIBUTION WIDTH 16.8 % (9.0-15.0); WHITE BLOOD COUNT (AUTO) 8.7 K/uL (4.8-10.8)
[2023-01-26 20:52] LABS: ALANINE AMINOTRANSFERASE 19 U/L (12-78); ALBUMIN 2.5 g/dL (3.4-4.8); ANION GAP 6 (5-15); ASPARTATE AMINOTRANSFERASE 22 U/L (10-37); CALCIUM 8.2 mg/dL (8.4-11.0); CHLORIDE 102 mmol/L (98-107); GLUCOSE 98 mg/dL (70-99); TOTAL BILIRUBIN 0.4 mg/dL (0.0-1.0); UREA NITROGEN, BLOOD 20 mg/dL (8-21)
[2023-01-26 21:42] LABS: AMYLASE 45 U/L (0-100); LACTATE DEHYDROGENASE 179 U/L (81-234); LIPASE 100 U/L (73-393)
[2023-01-26 21:46] LABS: ACETONE, SERUM NEGATIVE (NEGATIVE)
--- NOTE | 2023-01-26 21:47 | NUR ---
Placed in room 3 . Placed on link trainer maintenance worker, blood pressure machine and pulse oximeter. To gown for exam. Side rails up. Report given to Geena NICHOLE (reg).
[2023-01-26 21:54] LABS: BILIRUBIN,URINE NEGATIVE (NEGATIVE); BLOOD, URINE NEGATIVE (NEGATIVE); CLARITY/URINE CLEAR (CLEAR); COLOR,URINE YELLOW (YELLOW); GLUCOSE,URINE NEGATIVE (NEGATIVE); KETONES,URINE NEGATIVE (NEGATIVE); LEUKOCYTE ESTERASE ,URINE TRACE (NEGATIVE); NITRITE, URINE NEGATIVE (NEGATIVE); PH,URINE 7.5 (5.0-8.0); PROTEIN URINE NEGATIVE (NEGATIVE); UROBILINOGEN,URINE 0.2 (0.2-1.0)
--- NOTE | 2023-01-26 21:55 | NUR ---
Dr. Rogers at bedside examining the patient.
[2023-01-26] MEDS ORDERED: HYDROcodone/ACETAMIN 7.5-325 MG TAB PO ONE (22:00)
[2023-01-26] MEDS ORDERED: IBUPROFEN 600 MG TABLET PO ONE (22:00)
[2023-01-26] MEDS ORDERED: IBUP-1969 PO (22:04)
[2023-01-26] MEDS ORDERED: TRAM50TA2 PO (22:05)
[2023-01-26 22:14] LABS: BACTERIA,URINE FEW /HPF (None Seen); RBC,URINE 0-3 /HPF (0-3)
[2023-01-26 22:15] LABS: MUCUS,URINE None Seen /LPF (None Seen)
--- NOTE | 2023-01-26 22:44 | NUR ---
Requested an ambulance to transport her back home.
--- NOTE | 2023-01-27 06:56 | NUR ---
Called [facility] at [phone] - no answer.
--- NOTE | 2023-01-27 07:12 | NUR ---
Report given and care transferred to Eliel RN for continuity of care.
[2023-01-27] MEDS ORDERED: HYDROcodone/ACETAMIN 7.5-325 MG TAB PO ONE (08:00)
--- NOTE | 2023-01-27 08:13 | NUR ---
PT MEDICALLY CLEARED FOR D/C. D/C INSTRUCTIONS GIVEN TO PT. PT TO FOLLOW-UP WITH PCP WITHIN 1-3 DAYS AND TO RETURN TO ED FOR WORSENING S/S. PT VERBALIZED UNDERSTANDING. PT AAOX4, NAD, VSS, WRISTBAND REMOVED. PT IS BED RIDDEN. PT IS BEING TRANSPORTED THROUGH [facility] TO [facility]. PT LEFT ED WITH ALL BELONINGS.
--- NOTE | 2023-01-27 08:18 | NUR ---
Called various times [facility] at [phone] to give report on pt - no answer.
[2023-01-27 08:19] VITALS: BP_SYST 162
== END 2023-01-27 08:13 ==
LOC: SED 18:58
DX: R10.30 Lower abdominal pain, unspecified (principal); R19.7 Diarrhea, unspecified; I10 Essential (primary) hypertension; Z88.0 Allergy status to penicillin; Z88.1 Allergy status to other antibiotic agents; Z88.2 Allergy status to sulfonamides; Z88.5 Allergy status to narcotic agent; Z88.6 Allergy status to analgesic agent; Z91.041 Radiographic dye allergy status; Z91.013 Allergy to seafood; Z79.899 Other long term (current) drug therapy
CPT/HCPCS: 36415; 76376; 80053; 81000; 82009; 82150; 83605; 83615; 83690; 84484; 85025; 86140; 87086; 99285

== ENCOUNTER 2023-03-13 07:09 | Emergency (ER) | payer OTHER, MEDICAID ==
[~2023-03-13] VITALS: Ht 162.6 cm; Wt 72.6 kg
[~2023-03-13 07:09] MED LIST changes: +IBUP-1969 PO; +TRAM50TA2 PO
[2023-03-13 07:29] VITALS: BP_SYST 149
[2023-03-13] MEDS ORDERED: ALBUTEROL SULFATE 0.083% 2.5 MG/3 ML VIAL.NEB INH ONE (07:52)
[2023-03-13] MEDS ORDERED: BUDESONIDE 0.5 MG/2 ML AMPUL.NEB ONE (07:52)
[2023-03-13] MEDS ORDERED: IPRATROPIUM BROM 0.5 MG/2.5 ML VIAL.NEB (ATROVENT) INH ONE (07:52)
--- NOTE | 2023-03-13 07:53 | NUR ---
82 yo/f biba from [facility] living w c/o sob since last night, + afib rvr([place]). pt denies any chest pain, fevers, chills, n/v/d. pt was given x1 albuterol trt [place]. pt o2 sat >95% on room air. pt hr fluctuating 90s to 110s. pmh: afib, htn allergies: multiple
[2023-03-13] MEDS ORDERED: DILTIAZEM HCL 60 MG TABLET PO ONE (08:00)
[2023-03-13] MEDS ORDERED: IPRATROPIUM/ALBUTEROL SULFATE 3 ML AMPUL.NEB (DUONEB) INH ONE ×2 (08:00→09:30)
--- NOTE | 2023-03-13 08:19 | NUR ---
covid and flu swabs collected and sent to lab.
--- NOTE | 2023-03-13 08:35 | NUR ---
pt reports mild sob, feeling better, s/p x2 breathing treatments.
[2023-03-13 08:50] LABS: ANION GAP 10 (5-15); CALCIUM 8.5 mg/dL (8.4-11.0); CHLORIDE 105 mmol/L (98-107); CREATININE 1.32 mg/dL (0.55-1.30); GLUCOSE 93 mg/dL (70-99); UREA NITROGEN, BLOOD 24 mg/dL (8-21)
[2023-03-13 08:52] LABS: BASOPHILS # (AUTO) 0.1 K/uL (0.0-0.2); BASOPHILS % (AUTO) 1.3 % (0.0-2.0); EOSINOPHILS # (AUTO) 0.3 K/uL (0.0-0.4); EOSINOPHILS % (AUTO) 4.9 % (0.0-4.0); HEMATOCRIT 36.2 % (36-48); HEMOGLOBIN 11.5 g/dL (12.0-16.0); LYMPHOCYTES # (AUTO) 1.4 K/uL (1.0-5.5); LYMPHOCYTES % (AUTO) 20.2 % (20.5-51.5); MEAN CORPUSCULAR HEMOGLOBIN 26 pg (27-31); MEAN CORPUSCULAR HGB CONC 32 % (32-36); MEAN CORPUSCULAR VOLUME 82 fL (79.0-98.0); MONOCYTES # (AUTO) 1.1 K/uL (0.0-1.0); MONOCYTES % (AUTO) 15.4 % (1.7-9.3); NEUTROPHILS % (AUTO) 58.2 % (40.0-70.0); PLATELET COUNT (AUTO) 278 K/uL (130-430); RED BLOOD CELL COUNT(AUTO) 4.44 MIL/uL (4.2-6.2); RED CELL DISTRIBUTION WIDTH 17.4 % (9.0-15.0); WHITE BLOOD COUNT (AUTO) 6.9 K/uL (4.8-10.8)
[2023-03-13 08:59] LABS: ALANINE AMINOTRANSFERASE 14 U/L (12-78); ALBUMIN 3.2 g/dL (3.4-4.8); ASPARTATE AMINOTRANSFERASE 27 U/L (10-37); TOTAL BILIRUBIN 0.7 mg/dL (0.0-1.0)
--- NOTE | 2023-03-13 09:03 | NUR ---
Per Lab, pt. + Influenza
--- NOTE | 2023-03-13 09:17 | NUR ---
pt c/o of increased\ing sob, pt has ongoing htn, and tachycardic, naresh solano made aware.
[2023-03-13] MEDS ORDERED: ATENOLOL 50 MG TABLET (TENORMIN) PO ONE (09:30)
[2023-03-13 09:53] LABS: INR 1.1 (0.8-1.2); PROTHROMBIN TIME 11.6 SECS (9.5-12.5)
--- NOTE | 2023-03-13 10:02 | NUR ---
PT REPORTS FFELING MUCH BETTER NO SOB.
[2023-03-13] MEDS ORDERED: OSEL75CA PO (10:28)
[2023-03-13] MEDS ORDERED: PRED20TA PO (10:28)
--- NOTE | 2023-03-13 10:32 | NUR ---
PER YAZMIN DU PT UP FOR DC AT THIS TIME.
--- NOTE | 2023-03-13 11:03 | NUR ---
Called to arrange DC transport back to [facility]. Pt will be going to Room #102.
--- NOTE | 2023-03-13 11:11 | NUR ---
Called to arrange DC transport back to [facility]. [facility] will tranport, ETA 1300 Pt will be going to Room #102.
--- NOTE | 2023-03-13 11:50 | NUR ---
[facility] transport cancelled due to insurance. Called next of kin: Son Josep Ann . Not in service.
--- NOTE | 2023-03-13 11:54 | NUR ---
Called [facility]. [employer] [phone] Faxed face sheet and Confirmation Request Leter.
--- NOTE | 2023-03-13 11:54 | NUR ---
Per [employer] call [employer].
[2023-03-13] MEDS ORDERED: OSELTAMIVIR PHOSPHATE 6 MG/1 ML, 60 ML SUSP PO ONE (12:00)
[2023-03-13] MEDS ORDERED: OSELTAMIVIR PHOSPHATE 6 MG/1 ML, 60 ML SUSP ONE (12:02)
--- NOTE | 2023-03-13 13:28 | NUR ---
Pt. jona to pay $100 for wheel chair transport as confirmed by DIONISIO Longoria.
--- NOTE | 2023-03-13 14:06 | NUR ---
Daughter: Patti Called several times, no answer.
--- NOTE | 2023-03-13 14:16 | NUR ---
Ismael Isidro from [employer] will call back anjel DE LEON
--- NOTE | 2023-03-13 14:33 | NUR ---
Transport ETA 1450 per Damián from [facility] [employer]
[2023-03-13 15:07] VITALS: BP_SYST 136
--- NOTE | 2023-03-13 15:09 | NUR ---
Patient given written and verbal discharge instructions and verbalizes understanding. ER MD discussed with patient the results and treatment provided. Patient in stable condition. ID arm band removed. IV catheter removed intact and dressing applied, no active bleeding. Rx of tamiflu, prednisone given. Patient educated on pain management and to follow up with PMD. Pain Scale 0/10. Opportunity for questions provided and answered. Medication side effect fact sheet provided.
== END 2023-03-13 15:09 | disposition home or self-care (01) ==
LOC: SED 07:09
DX: J44.9 Chronic obstructive pulmonary disease, unspecified (principal); J11.1 Influenza due to unidentified influenza virus with other respiratory manifestations; I10 Essential (primary) hypertension; Z88.0 Allergy status to penicillin; Z88.1 Allergy status to other antibiotic agents; Z88.2 Allergy status to sulfonamides; Z88.5 Allergy status to narcotic agent; Z88.6 Allergy status to analgesic agent; Z91.013 Allergy to seafood; Z91.018 Allergy to other foods; Z88.8 Allergy status to other drugs, medicaments and biological substances; Z79.899 Other long term (current) drug therapy; Z20.822 Contact with and (suspected) exposure to COVID-19
CPT/HCPCS: 80053; 82550; 83880; 85025; 85610; 85730; 84484; 36415; 93005; 71045; 94640; 36600; 82803; 99285; 83605; 87804 ×2; 87426; G9035; J7613; J7626

== ENCOUNTER 2023-03-14 01:29 | Inpatient (IN) | payer OTHER, MEDICAID ==
[2023-03-14] VITALS (7 sets, daily range): BP systolic 126–177
[~2023-03-14] VITALS: Ht 162.6 cm; Wt 80.3 kg
[~2023-03-14 01:29] MED LIST changes: +OSEL75CA PO; +PRED20TA PO
[2023-03-14] MEDS ORDERED: ONDANSETRON HCL 4 MG/2 ML VIAL IVP ONE (01:45)
[2023-03-14] MEDS ORDERED: MORPHINE 4 MG INJ. 4 MG/ML VIAL IVP ONE (01:45)
[2023-03-14 02:23] LABS: BASOPHILS # (AUTO) 0.1 K/uL (0.0-0.2); BASOPHILS % (AUTO) 0.8 % (0.0-2.0); EOSINOPHILS # (AUTO) 0.5 K/uL (0.0-0.4); EOSINOPHILS % (AUTO) 5.1 % (0.0-4.0); HEMATOCRIT 36.9 % (36-48); HEMOGLOBIN 11.8 g/dL (12.0-16.0); LYMPHOCYTES # (AUTO) 1.2 K/uL (1.0-5.5); LYMPHOCYTES % (AUTO) 14.2 % (20.5-51.5); MEAN CORPUSCULAR HEMOGLOBIN 26 pg (27-31); MEAN CORPUSCULAR HGB CONC 32 % (32-36); MEAN CORPUSCULAR VOLUME 81 fL (79.0-98.0); MONOCYTES # (AUTO) 1.5 K/uL (0.0-1.0); MONOCYTES % (AUTO) 16.6 % (1.7-9.3); NEUTROPHILS # (AUTO) 5.6 K/uL (1.8-7.7); NEUTROPHILS % (AUTO) 63.3 % (40.0-70.0); PLATELET COUNT (AUTO) 328 K/uL (130-430); RED BLOOD CELL COUNT(AUTO) 4.55 MIL/uL (4.2-6.2); RED CELL DISTRIBUTION WIDTH 17.6 % (9.0-15.0); WHITE BLOOD COUNT (AUTO) 8.8 K/uL (4.8-10.8)
[2023-03-14 02:41] LABS: ANION GAP 10 (5-15); CALCIUM 8.5 mg/dL (8.4-11.0); CHLORIDE 105 mmol/L (98-107); CREATININE 1.41 mg/dL (0.55-1.30); GLUCOSE 97 mg/dL (70-99); UREA NITROGEN, BLOOD 26 mg/dL (8-21)
[2023-03-14 02:48] LABS: ALANINE AMINOTRANSFERASE 16 U/L (12-78); ALBUMIN 3.2 g/dL (3.4-4.8); ASPARTATE AMINOTRANSFERASE 24 U/L (10-37); TOTAL BILIRUBIN 0.8 mg/dL (0.0-1.0)
[2023-03-14] MEDS ORDERED: ALBUTEROL SULFATE 0.083% 2.5 MG/3 ML VIAL.NEB INH ONE (03:45)
[2023-03-14] MEDS ORDERED: MORPHINE 4 MG INJ. 4 MG/ML VIAL IVP PRN (04:00)
[2023-03-14] MEDS ORDERED: FUROSEMIDE 40 MG/4 ML VIAL IVP ONE (04:00)
[2023-03-14] MEDS ORDERED: HYDROCHLOROTHIAZIDE 25 MG TABLET (HCTZ) PO ONE ×2 (05:00→17:15)
[2023-03-14] MEDS ORDERED: ALBUTEROL SULFATE 0.083% 2.5 MG/3 ML VIAL.NEB INH PRN (11:45)
[2023-03-14] MEDS ORDERED: METOPROLOL SUCCINATE 25 MG TAB.SR.24H (TOPROL XL) PO ONE (12:03)
[2023-03-14] MEDS: FUROSEMIDE 20 MG/2 ML VIAL IVP SCH ×2 (12:15→13:54)
[2023-03-14] MEDS: FUROSEMIDE 40 MG/4 ML VIAL ONE ×2 (13:36→13:40)
[2023-03-14] MEDS ORDERED: NITROGLYCERIN 0.4 MG TAB.SUBL SL PRN (16:45)
[2023-03-14] MEDS ORDERED: DIVALPROEX SODIUM 500 MG TABLET( DEPAKOTE) PO ONE (17:15)
[2023-03-14] MEDS ORDERED: ATENOLOL 25 MG TABLET(TENORMIN) PO ONE (17:15)
[2023-03-14] MEDS ORDERED: lisinopriL 5 MG TABLET PO ONE (17:15)
[2023-03-14] MEDS ORDERED: DIGOXIN 0.125 MG TABLET PO ONE (17:15)
[2023-03-14] MEDS ORDERED: POTASSIUM CHLORIDE 10 MEQ TAB.PRT.SR PO ONE (17:15)
[2023-03-14] MEDS: ALBUTEROL SULFATE 0.083% 2.5 MG/3 ML VIAL.NEB INH PRN (17:43)
[2023-03-14] MEDS ORDERED: LEVOTHYROXINE SODIUM 0.05 MG TABLET PO SCH (21:00)
[2023-03-14] MEDS ORDERED: BUMETANIDE 0.25 MG/ML; 10 ML VIAL IVP SCH (21:00)
[2023-03-14] MEDS: DIVALPROEX SODIUM 500 MG TABLET( DEPAKOTE) PO SCH (21:25)
[2023-03-14] MEDS: BUMEX 1 MG/4 ML VIAL IVP SCH (21:26)
[2023-03-15 01:17] VITALS: BP_SYST 147
[2023-03-15] MEDS: ALBUTEROL SULFATE 0.083% 2.5 MG/3 ML VIAL.NEB INH PRN ×3 (04:00→19:40)
[2023-03-15 05:23] LABS: FREE T4 (FREE THYROXINE) 1.5 ng/dL (0.6-1.6); THYROID STIMULATING HORMONE 4.18 uIu/mL (0.34-4.82)
[2023-03-15] MEDS ORDERED: LEVOTHYROXINE SODIUM 0.05 MG TABLET PO SCH (07:00)
[2023-03-15 08:00] VITALS: BP_SYST 143
[2023-03-15] MEDS ORDERED: guaiFENesin/DEXTROMETHORPHAN 10 ML UDC PO PRN (08:15)
[2023-03-15] MEDS: DIVALPROEX SODIUM 500 MG TABLET( DEPAKOTE) PO SCH ×2 (08:36→22:07)
[2023-03-15] MEDS: POTASSIUM CHLORIDE 10 MEQ TAB.PRT.SR PO SCH (08:36)
[2023-03-15] MEDS: DIGOXIN 0.125 MG TABLET PO SCH (08:37)
[2023-03-15] MEDS: METOPROLOL SUCCINATE 25 MG TAB.SR.24H (TOPROL XL) PO SCH (08:38)
[2023-03-15] MEDS: lisinopriL 5 MG TABLET PO SCH (08:38)
[2023-03-15] MEDS: BUMEX 1 MG/4 ML VIAL IVP SCH ×2 (09:00→10:40)
[2023-03-15] MEDS ORDERED: ATENOLOL 25 MG TABLET(TENORMIN) PO SCH (09:00)
[2023-03-15] MEDS ORDERED: HYDROCHLOROTHIAZIDE 25 MG TABLET (HCTZ) PO SCH (09:00)
[2023-03-15 09:47] LABS: INR 1.1 (0.8-1.2); PROTHROMBIN TIME 11.5 SECS (9.5-12.5)
[2023-03-15 11:32] VITALS: BP_SYST 158
[2023-03-15 16:44] VITALS: BP_SYST 149
[2023-03-15] MEDS ORDERED: CYCLOBENZAPRINE HCL 10 MG TABLET (FLEXERIL) PO PRN (17:45)
[2023-03-15 20:00] VITALS: BP_SYST 150
[2023-03-15] MEDS: BUMETANIDE 1 MG TABLET PO SCH (22:08)
[2023-03-16] VITALS: BP_SYST 100; BP_SYST 149
[2023-03-16 05:23] LABS: BASOPHILS # (AUTO) 0.1 K/uL (0.0-0.2); BASOPHILS % (AUTO) 1.2 % (0.0-2.0); EOSINOPHILS # (AUTO) 0.6 K/uL (0.0-0.4); EOSINOPHILS % (AUTO) 9.4 % (0.0-4.0); HEMATOCRIT 35.8 % (36-48); HEMOGLOBIN 11.6 g/dL (12.0-16.0); LYMPHOCYTES # (AUTO) 1.3 K/uL (1.0-5.5); LYMPHOCYTES % (AUTO) 21.3 % (20.5-51.5); MEAN CORPUSCULAR HEMOGLOBIN 26 pg (27-31); MEAN CORPUSCULAR HGB CONC 32 % (32-36); MEAN CORPUSCULAR VOLUME 81 fL (79.0-98.0); MONOCYTES # (AUTO) 0.9 K/uL (0.0-1.0); MONOCYTES % (AUTO) 15.5 % (1.7-9.3); NEUTROPHILS # (AUTO) 3.2 K/uL (1.8-7.7); NEUTROPHILS % (AUTO) 52.6 % (40.0-70.0); PLATELET COUNT (AUTO) 251 K/uL (130-430); RED BLOOD CELL COUNT(AUTO) 4.41 MIL/uL (4.2-6.2); RED CELL DISTRIBUTION WIDTH 16.9 % (9.0-15.0); WHITE BLOOD COUNT (AUTO) 6.1 K/uL (4.8-10.8)
[2023-03-16 05:54] LABS: ANION GAP 9 (5-15); CALCIUM 7.7 mg/dL (8.4-11.0); CHLORIDE 102 mmol/L (98-107); CREATININE 1.33 mg/dL (0.55-1.30); GLUCOSE 75 mg/dL (70-99); UREA NITROGEN, BLOOD 21 mg/dL (8-21)
[2023-03-16 08:05] VITALS: BP_SYST 124
[2023-03-16] MEDS: ALBUTEROL SULFATE 0.083% 2.5 MG/3 ML VIAL.NEB INH PRN ×2 (08:46→12:29)
[2023-03-16] MEDS: POTASSIUM CHLORIDE 10 MEQ TAB.PRT.SR PO SCH (10:09)
[2023-03-16] MEDS: DIGOXIN 0.125 MG TABLET PO SCH (10:09)
[2023-03-16] MEDS: METOPROLOL SUCCINATE 25 MG TAB.SR.24H (TOPROL XL) PO SCH (10:10)
[2023-03-16] MEDS: lisinopriL 5 MG TABLET PO SCH (10:10)
[2023-03-16] MEDS: DIVALPROEX SODIUM 500 MG TABLET( DEPAKOTE) PO SCH (10:10)
[2023-03-16] MEDS: BUMETANIDE 1 MG TABLET PO SCH (10:17)
[2023-03-16 11:34] VITALS: BP_SYST 122
[2023-03-16 16:41] VITALS: BP_SYST 124
[2023-03-16 16:49] VITALS: BP_SYST 124
[2023-03-21] MEDS ORDERED: ALENDRONATE SODIUM 70 MG TABLET (FOSAMAX) PO SCH (09:00)
== END 2023-03-16 17:35 | disposition home or self-care (01) | DRG 291 ==
LOC: SED 01:29 → STU 03:54
PROVIDERS: ADMIT Family Medicine; ATTEND Family Medicine
PROC: 0W993ZZ Drainage of Right Pleural Cavity, Percutaneous Approach (ICD-10-PCS; principal; 2023-03-16)
DX: I11.0 Hypertensive heart disease with heart failure (principal); I50.43 Acute on chronic combined systolic (congestive) and diastolic (congestive) heart failure; J96.01 Acute respiratory failure with hypoxia; I48.20 Chronic atrial fibrillation, unspecified; J91.8 Pleural effusion in other conditions classified elsewhere; J44.9 Chronic obstructive pulmonary disease, unspecified; Z96.659 Presence of unspecified artificial knee joint; Z96.649 Presence of unspecified artificial hip joint; Z60.2 Problems related to living alone; E03.9 Hypothyroidism, unspecified; E78.5 Hyperlipidemia, unspecified; Z88.2 Allergy status to sulfonamides; Z88.8 Allergy status to other drugs, medicaments and biological substances; Z88.6 Allergy status to analgesic agent; Z88.5 Allergy status to narcotic agent; Z91.013 Allergy to seafood; Z88.1 Allergy status to other antibiotic agents; Z79.899 Other long term (current) drug therapy; Z90.49 Acquired absence of other specified parts of digestive tract
CPT/HCPCS: 32555; 36415; 71045; 76376; 80048; 80053; 83037; 83735; 83880; 84439; 84443; 84484; 85025; 85610-TC; 85730-TC; 87081; 93005; 94640; 94760; 96374; 96375; 99285; G0378; J1940; J2270; J2405; J3490; J7613

== ENCOUNTER 2023-04-12 18:43 | Emergency (ER) | payer OTHER, MEDICAID ==
[~2023-04-12] VITALS: Ht 162.6 cm; Wt 59.0 kg
[2023-04-12 19:11] VITALS: BP_SYST 156
--- NOTE | 2023-04-12 19:14 | NUR ---
Outside Food Server assume care for patient. UNKNOWN CC & report.
--- NOTE | 2023-04-12 19:16 | NUR ---
PT ALE[facility] FROM [facility] WITH CC OF LOWER ABD PAIN. PT REPORTS IT STARTED LAST WEEK AFTER TAKING LAXATIVE. PT DENIES ANY DIARRHEA AND REPORTS SOLID BM THIS AFTERNOON. PT IS AWAKE A/O X4 AND VERBALLY RESPONSIVE. NO ACUTE DISTRESS NOTED. BREATHING EVEN AND UNLABORED. PT REPORTS STAFF AT [facility] ASKED PT IF SHE WANTED TO COME TO ER AND SHE STATED SHE REQUESTED YES. PT TRANSFERRED FROM EMT [facility] TO ED [facility] WITH NO ACUTE DISTRESS. SAFETY MEASURES IN PLACE.
[2023-04-12] MEDS ORDERED: NACL 0.9% 1,000 ML IV ONE (19:30)
--- NOTE | 2023-04-12 19:43 | NUR ---
Patient to CT via [facility].
[2023-04-12 19:52] LABS: BASOPHILS # (AUTO) 0.1 K/uL (0.0-0.2); BASOPHILS % (AUTO) 1.3 % (0.0-2.0); EOSINOPHILS # (AUTO) 0.6 K/uL (0.0-0.4); EOSINOPHILS % (AUTO) 6.8 % (0.0-4.0); HEMATOCRIT 36.1 % (36-48); HEMOGLOBIN 11.7 g/dL (12.0-16.0); LYMPHOCYTES # (AUTO) 2.1 K/uL (1.0-5.5); LYMPHOCYTES % (AUTO) 24.3 % (20.5-51.5); MEAN CORPUSCULAR HEMOGLOBIN 27 pg (27-31); MEAN CORPUSCULAR HGB CONC 33 % (32-36); MEAN CORPUSCULAR VOLUME 82 fL (79.0-98.0); MONOCYTES # (AUTO) 1.4 K/uL (0.0-1.0); MONOCYTES % (AUTO) 16.1 % (1.7-9.3); NEUTROPHILS # (AUTO) 4.4 K/uL (1.8-7.7); NEUTROPHILS % (AUTO) 51.5 % (40.0-70.0); PLATELET COUNT (AUTO) 308 K/uL (130-430); RED BLOOD CELL COUNT(AUTO) 4.42 MIL/uL (4.2-6.2); RED CELL DISTRIBUTION WIDTH 16.6 % (9.0-15.0); WHITE BLOOD COUNT (AUTO) 8.5 K/uL (4.8-10.8)
--- NOTE | 2023-04-12 19:52 | NUR ---
Patient return to ED and moved to bed [address]
[2023-04-12 20:00] LABS: ANION GAP 8 (5-15); CALCIUM 8.2 mg/dL (8.4-11.0); CHLORIDE 103 mmol/L (98-107); CREATININE 1.63 mg/dL (0.55-1.30); GLUCOSE 100 mg/dL (70-99); UREA NITROGEN, BLOOD 30 mg/dL (8-21)
--- NOTE | 2023-04-12 20:00 | NUR ---
No chagne from previous assessment. Will continue to monitor VS & clinical status.
[2023-04-12 20:05] LABS: ALANINE AMINOTRANSFERASE 17 U/L (12-78); ALBUMIN 3.2 g/dL (3.4-4.8); ASPARTATE AMINOTRANSFERASE 27 U/L (10-37); TOTAL BILIRUBIN 0.6 mg/dL (0.0-1.0)
--- NOTE | 2023-04-12 20:20 | NUR ---
Attemtped to IV placement. Patinet non-cooperative with placement, moving extremities around upon insertion. IV successful attempt to right index finger, however patient was screaming and crying to take out IV and IV came out while patient moving RH & RUE refusing andgio cath be left in.
[2023-04-12] MEDS ORDERED: FUROSEMIDE 20 MG/2 ML VIAL IVP ONE (21:15)
[2023-04-12] MEDS ORDERED: FUROSEMIDE 20 MG TABLET PO ONE (21:30)
[2023-04-12] MEDS ORDERED: MORPHINE 4 MG INJ. 4 MG/ML VIAL IM ONE (21:30)
[2023-04-12 22:00] VITALS: BP_SYST 128
--- NOTE | 2023-04-12 22:00 | NUR ---
No change from previous assessment. Will continue to monitor VS & clinical status.
--- NOTE | 2023-04-12 22:45 | NUR ---
Dr. Dennis at bedside. Patient voices concern regarding Morphine injection. MD relieves patient concerns and will accept Lasix & Morphine.
--- NOTE | 2023-04-12 22:50 | NUR ---
Patient medicated with Lasix 40 mg PO & Morphine 4 mg IM.
--- NOTE | 2023-04-12 23:05 | NUR ---
Patient placed in WC. Patient refused to sign DCI. Patient refuse to DCI. Patient OTD in stable condition via WC to [employer].
--- NOTE | 2023-04-12 23:10 | NUR ---
Report called to Beverly at [facility].
== END 2023-04-12 23:10 | disposition home or self-care (01) ==
LOC: SED 18:43
DX: M54.50 Low back pain, unspecified (principal); G89.29 Other chronic pain; I11.0 Hypertensive heart disease with heart failure; I50.9 Heart failure, unspecified; Z88.1 Allergy status to other antibiotic agents; Z88.2 Allergy status to sulfonamides; Z88.5 Allergy status to narcotic agent; Z88.6 Allergy status to analgesic agent; Z91.041 Radiographic dye allergy status; Z91.018 Allergy to other foods; Z88.8 Allergy status to other drugs, medicaments and biological substances; Z79.899 Other long term (current) drug therapy
CPT/HCPCS: 99285; 74176; 80053; 85025; 36415; 76376; 96372; J2270

== ENCOUNTER 2023-06-08 04:09 | Emergency (ER) | payer OTHER, MEDICAID ==
[~2023-06-08] VITALS: Ht 162.6 cm; Wt 58.5 kg
[2023-06-08 04:25] VITALS: BP_SYST 190; PULSE 77; RESP 22; TEMP 96.7; O2SAT 100
[2023-06-08] MEDS ORDERED: ONDANSETRON HCL 4 MG/2 ML VIAL IVP ONE (04:30)
[2023-06-08] MEDS ORDERED: MORPHINE 2 MG/ML INJ. SYRINGE IVP ONE (04:30)
[2023-06-08] MEDS ORDERED: KETOROLAC TROMETHAMINE 30 MG VIAL IVP ONE (06:00)
[2023-06-08] MEDS ORDERED: ACET-2634 PO (07:08)
[2023-06-08 11:29] VITALS: BP_SYST 153; PULSE 97; RESP 18; TEMP 97.6; O2SAT 98
== END 2023-06-08 10:43 | disposition home or self-care (01) ==
LOC: SED 04:09
DX: S13.4XXA Sprain of ligaments of cervical spine, initial encounter (principal); S40.011A Contusion of right shoulder, initial encounter; S09.90XA Unspecified injury of head, initial encounter; I11.0 Hypertensive heart disease with heart failure; I50.9 Heart failure, unspecified; Z88.0 Allergy status to penicillin; Z88.1 Allergy status to other antibiotic agents; Z88.2 Allergy status to sulfonamides; Z88.5 Allergy status to narcotic agent; Z88.6 Allergy status to analgesic agent; Z91.013 Allergy to seafood; Z88.8 Allergy status to other drugs, medicaments and biological substances; Z79.899 Other long term (current) drug therapy; W18.30XA Fall on same level, unspecified, initial encounter; Y93.89 Activity, other specified; Y92.89 Other specified places as the place of occurrence of the external cause; Y99.8 Other external cause status
CPT/HCPCS: 99285; 70450; 96374; 96375; 73030; 70490; 72125; 72192; 76376; J2405; J2270

== ENCOUNTER 2024-01-18 18:26 | Emergency (ER) | payer MEDICAID, OTHER ==
[~2024-01-18] VITALS: Ht 162.6 cm; Wt 55.3 kg
[2024-01-18 18:26] VITALS: BP_SYST 159; PULSE 94; RESP 18; TEMP 97.3; O2SAT 98
[~2024-01-18 18:26] MED LIST changes: +ACET-2634 PO
[2024-01-18] MEDS: AMOXICILLIN/POTASSIUM CLAV 875 MG TABLET PO ONE (19:58)
[2024-01-18] MEDS ORDERED: AUG875 PO (21:19)
[2024-01-18 23:41] VITALS: BP_SYST 140; PULSE 120; RESP 15; TEMP 98.4; O2SAT 91
== END 2024-01-18 23:41 | disposition home or self-care (01) ==
LOC: SED 18:26
DX: S90.112A Contusion of left great toe without damage to nail, initial encounter (principal); L03.116 Cellulitis of left lower limb; L03.115 Cellulitis of right lower limb; I11.0 Hypertensive heart disease with heart failure; I50.9 Heart failure, unspecified; Z88.1 Allergy status to other antibiotic agents; Z88.2 Allergy status to sulfonamides; Z88.5 Allergy status to narcotic agent; Z88.6 Allergy status to analgesic agent; Z88.8 Allergy status to other drugs, medicaments and biological substances; Z79.899 Other long term (current) drug therapy; W22.8XXA Striking against or struck by other objects, initial encounter; Y93.89 Activity, other specified; Y92.89 Other specified places as the place of occurrence of the external cause; Y99.8 Other external cause status
CPT/HCPCS: 99284

== ENCOUNTER 2024-03-05 16:08 | Emergency (ER) | payer OTHER ==
[~2024-03-05] VITALS: Ht 152.4 cm; Wt 61.2 kg
[2024-03-05 16:08] VITALS: BP_SYST 152; PULSE 135; RESP 18; TEMP 97; O2SAT 95
[~2024-03-05 16:08] MED LIST changes: +AUG875 PO; +Ammonium Lactate TP; +BENZ100C92 PO; +CLE150 PO; +DOCU-144 PO; +FURO-149 PO; +METO25TA6 PO; -OSEL75CA PO; +ZIT250 PO
[2024-03-05] MEDS: METOPROLOL TARTRATE 5 MG/5 ML VIAL IVP ONE ×2 (17:42→18:47)
[2024-03-05 17:55] LABS: BASOPHILS # (AUTO) 0.2 K/uL (0.0-0.2); BASOPHILS % (AUTO) 2.5 % (0.0-2.0); EOSINOPHILS # (AUTO) 0.7 K/uL (0.0-0.4); HEMATOCRIT 43.3 % (36-48); HEMOGLOBIN 14.2 g/dL (12.0-16.0); LYMPHOCYTES # (AUTO) 1.3 K/uL (1.0-5.5); LYMPHOCYTES % (AUTO) 13.9 % (20.5-51.5); MEAN CORPUSCULAR HEMOGLOBIN 26 pg (27-31); MEAN CORPUSCULAR HGB CONC 33 % (32-36); MEAN CORPUSCULAR VOLUME 80 fL (79.0-98.0); MONOCYTES # (AUTO) 1.1 K/uL (0.0-1.0); MONOCYTES % (AUTO) 10.9 % (1.7-9.3); NEUTROPHILS # (AUTO) 6.3 K/uL (1.8-7.7); NEUTROPHILS % (AUTO) 65.7 % (40.0-70.0); PLATELET COUNT (AUTO) 350 K/uL (130-430); RED BLOOD CELL COUNT(AUTO) 5.41 MIL/uL (4.2-6.2); RED CELL DISTRIBUTION WIDTH 15.9 % (9.0-15.0); WHITE BLOOD COUNT (AUTO) 9.6 K/uL (4.8-10.8)
[2024-03-05 18:07] LABS: INR 1.2 (0.8-1.2); PROTHROMBIN TIME 11.9 SECS (9.5-12.5)
[2024-03-05 18:19] LABS: ANION GAP 10 (5-15); CALCIUM 9.1 mg/dL (8.4-11.0); CARBON DIOXIDE 33 mmol/L (23-29); CHLORIDE 101 mmol/L (98-107); GLUCOSE 93 mg/dL (74-106); POTASSIUM 3.9 mmol/L (3.5-5.1); SODIUM SERUM 144 mmol/L (136-145); UREA NITROGEN, BLOOD 35 mg/dL (8-21)
[2024-03-05] MEDS: METOPROLOL TARTRATE 25 MG TABLET PO ONE (18:47)
[2024-03-05] MEDS ORDERED: Cefpodoxime PO (18:49)
[2024-03-05 20:15] VITALS: BP_SYST 176; PULSE 126; RESP 15; TEMP 97.8; O2SAT 95
== END 2024-03-05 20:15 | disposition home or self-care (01) ==
LOC: SED 16:08
DX: I48.20 Chronic atrial fibrillation, unspecified (principal); N39.0 Urinary tract infection, site not specified; I12.9 Hypertensive chronic kidney disease with stage 1 through stage 4 chronic kidney disease, or unspecified chronic kidney disease; N18.9 Chronic kidney disease, unspecified; Z88.0 Allergy status to penicillin; Z88.1 Allergy status to other antibiotic agents; Z88.2 Allergy status to sulfonamides; Z88.4 Allergy status to anesthetic agent; Z88.5 Allergy status to narcotic agent; Z88.6 Allergy status to analgesic agent; Z88.8 Allergy status to other drugs, medicaments and biological substances; Z91.013 Allergy to seafood
CPT/HCPCS: 36415; 70450; 71045; 80048; 82948; 84484; 85025; 85610; 85730; 96374; 96376; 99291; J3490